=== PATIENT | male | born 1985 ===

== ENCOUNTER 2016-12-16 11:36 | Emergency (ER) | payer MEDICAID ==
[2016-12-16 11:41] VITALS: BP 130/69; PULSE 106; TEMP 96; O2SAT 100
[2016-12-16 11:42] VITALS: BMI 18.5
--- NOTE | 2016-12-16 12:19 | ED PDOC ---
Upper Extremity Pain/Injury Time Seen by Provider: 12/16/16 12:15 Chief Complaint (Nursing): Upper Extremity Problem/Injury Chief Complaint (Provider): Right arm pain History Per: Patient History/Exam Limitations: no limitations Onset/Duration Of Symptoms: Days Current Symptoms Are (Timing): Still Present Additional Complaint(s): Patient is a 31 y/o male with a past medical history of seizures presenting to the emergency department for right arm pain ongoing for several days. Swelling and redness noted on right arm. Reports that he is unsure why or how it occurred. Also notes that he was at [facility] where he received Dilantin as a result of a seizure that occurred three days ago. Denies fever or other complaints. PCP: none provided. Past Medical History Reviewed: Historical Data Vital Signs: Last Vital Signs Temp 96 F L 12/16/16 11:40 Pulse 106 H 12/16/16 11:40 Resp BP 130/69 12/16/16 11:40 Pulse Ox 100 12/16/16 11:40 - Medical History PMH: Asthma, Depression, Kidney Stones, Chronic Kidney Disease, Seizures - Family History Family History: States: Unknown Family Hx - Immunization History Hx Tetanus Toxoid Vaccination: Yes (12/07/2012) Hx Influenza Vaccination: Yes Hx Pneumococcal Vaccination: No - Home Medications Home Medications: Ambulatory Orders Medication Instructions Recorded Phenytoin, Extended [Dilantin 300 mg PO DAILY #90 cer 09/05/16 [place]] Phenytoin Sodium Extended 300 mg PO BID #60 capsule 12/11/16 [Phenytek] Cephalexin [Keflex] 500 mg PO QID #28 cap 12/16/16 Sulfamethoxazole/Trimethoprim 2 tab PO BID #28 tab 12/16/16 [Bactrim DS 800 mg-160 mg] - Allergies Allergies/Adverse Reactions: Allergies Allergy/AdvReac Type Severity Reaction Status Date / Time No Known Allergies Allergy Verified 12/11/16 07:08 Review of Systems ROS Statement: Except As Marked, All Systems Reviewed And Found Negative Constitutional: Negative for: Fever Musculoskeletal: Positive for: Other (right arm pain, swelling, and redness) Physical Exam - Reviewed Nursing Documentation Reviewed: Yes Vital Signs Reviewed: Yes - Physical Exam Appears: Positive for: Well, Non-toxic, No Acute Distress Head Exam: Positive for: ATRAUMATIC, NORMAL INSPECTION, NORMOCEPHALIC Skin: Positive for: Normal Color, Warm, Dry Eye Exam: Positive for: Normal appearance Neck: Positive for: Normal Cardiovascular/Chest: Positive for: Regular Rate, Rhythm Respiratory: Negative for: Accessory Muscle Use, Respiratory Distress Extremity: Positive for: Normal ROM, Other (4 cm indurated area with erythema noted on right forearm proximal to the antecubital region.) Neurologic/Psych: Positive for: Alert, Oriented (x3) - ECG O2 Sat by Pulse Oximetry: 100 (RA) Pulse Ox Interpretation: Normal - Progress ED Course And Treament: Duplex: neg for dvt. No svt noted Will treate for cellulitis Medical Decision Making Medical Decision Making: Time: 12:15 Initial impression: Right arm pain Initial plan: Duplex Right Upper Extremity 14:19 Ultrasound results are normal. Will give antibiotics. ~ Scribe Attestation: Documented by Adrianne Donahue, acting as a scribe for CITLALY Sheppard. Provider Scribe Attestation: All medical record entries made by the Scribe were at my direction and personally dictated by me. I have reviewed the chart and agree that the record accurately reflects my personal performance of the history, physical exam, medical decision making, and the department course for this patient. I have also personally directed, reviewed, and agree with the discharge instructions and disposition. Disposition - Clinical Impression Clinical Impression: Cellulitis - Patient ED Disposition Is Patient to be Admitted: No - Disposition Referrals: [facility] [Outside] Disposition: Routine/Home Disposition Time: 14:20 Condition: FAIR Additional Instructions: RETURN IN 2 DAYS FOR RE EVALUATION. Prescriptions: Cephalexin [Keflex] 500 mg PO QID #28 cap Sulfamethoxazole/Trimethoprim [Bactrim DS 800 mg-160 mg] 2 tab PO BID #28 tab Instructions: Cellulitis (ED) Forms: [employer] (Greek), [facility] ED School/Work Excuse
[2016-12-16 14:25] VITALS: RESP 16
--- NOTE | 2016-12-16 15:08 | US ---
PROCEDURE: Right Upper Extremity Venous Doppler HISTORY: r/o dvt/svt/abscess COMPARISON: None available. TECHNIQUE: Right upper extremity deep veins, including the lower internal jugular, subclavian, axillary and brachial veins, were evaluated flow, compressibility and respiratory phasicity. Radial and ulnar veins were also evaluated. FINDINGS: Normal flow, compressibility and respiratory phasicity was observed in the right upper extremity deep veins. Evaluation of the area of swelling and redness in medial right forearm demonstrates no mass or fluid collection. IMPRESSION: No evidence of deep venous thrombosis right upper extremity.
== END 2016-12-16 14:30 | disposition home or self-care (01) ==
LOC: H.ER 11:36
DX: L03.113 Cellulitis of right upper limb (principal); F32.9 Major depressive disorder, single episode, unspecified; J45.909 Unspecified asthma, uncomplicated; N18.9 Chronic kidney disease, unspecified

== ENCOUNTER 2017-09-22 09:56 | Emergency (ER) | payer MEDICAID, OTHER ==
[2017-09-22 09:56] VITALS: BMI 18.5
[2017-09-22 10:01] VITALS: BP 119/77; PULSE 97; RESP 19; TEMP 97.9; O2SAT 96
[2017-09-22 10:33] LABS: BASO % 0.4 % (0.0-2.0); EOS # 0.1 K/uL (0.0-0.7); EOS % 1.2 % (0.0-4.0); HEMOGLOBIN 15.4 g/dL (12.0-18.0); LYMPH # 3.6 K/uL (1.0-4.3); LYMPH % 41.7 % (20.0-40.0); MEAN CELL VOLUME 90.7 fl (80.0-94.0); MEAN CORPUSCULAR HEMOGLOBIN 29.2 pg (27.0-31.0); MEAN CORPUSCULAR HGB CONC 32.2 g/dL (33.0-37.0); MEAN PLATELET VOLUME 7.6 fl (7.2-11.7); MONO # 0.7 K/uL (0.0-0.8); MONO % 7.6 % (0.0-10.0); NEUT # 4.3 K/uL (1.8-7.0); NEUT % 49.1 % (50.0-75.0); RBC 5.27 Mil/uL (4.40-5.90); RED CELL DISTRIBUTION WIDTH 14.1 % (11.5-14.5); WHITE BLOOD COUNT 8.7 K/uL (4.8-10.8)
--- NOTE | 2017-09-22 10:40 | ED PDOC ---
HPI: Seizure Time Seen by Provider: 09/22/17 10:15 Chief Complaint (Nursing): Seizure Chief Complaint (Provider): Seizure History Per: Patient History/Exam Limitations: no limitations Recent Seizure Activity Began: Just Before Arrival Associated Symptoms: Bit Tongue Additional Complaint(s): 32 years old male with history of seizure brought to the ED after he experienced an episode of seizure in his neurologist office. Patient is compliant on 300 mg Dilantin 3 times a day. He states he only recalls walking to the doctor's office. Patient reports biting is tongue and low back pain. He denies any headaches, chest pain, shortness of breath, fever, recent illness, vomiting, nausea or incontinence. Otherwise: (-) lightheadedness, (-) trauma, (- ) tinnitus, (-) hearing loss, (-) dyspnea, (-) diarrhea, (-) syncope, (-) GI bleeding. PMD: Fara Choi Past Medical History Reviewed: Historical Data, Nursing Documentation, Vital Signs Vital Signs: Last Vital Signs Temp 97.9 F 09/22/17 10:00 Pulse 97 H 09/22/17 10:00 Resp 19 09/22/17 10:00 BP 119/77 09/22/17 10:00 Pulse Ox 96 09/22/17 13:28 - Medical History PMH: Asthma, Depression, Kidney Stones, Chronic Kidney Disease, Seizures - Surgical History Surgical History: No Surg Hx - Family History Family History: States: Unknown Family Hx - Social History Current smoker - smoking cessation education provided: Yes Alcohol: None Drugs: Denies - Immunization History Hx Tetanus Toxoid Vaccination: Yes (12/07/2012) Hx Influenza Vaccination: Yes Hx Pneumococcal Vaccination: No - Home Medications Home Medications: Ambulatory Orders Medication Instructions Recorded Cephalexin [cephalexin] 500 mg PO Q6 #28 cap 06/14/17 Phenytoin Sodium Extended 300 mg PO DAILY 06/14/17 [Phenytek] Sulfamethoxazole/Trimethoprim 1 tab PO BID #14 tab 06/14/17 [Bactrim DS 800 mg-160 mg] Cyclobenzaprine [Cyclobenzaprine 10 mg PO TID PRN #15 tab 09/22/17 HCl] Naproxen 500 mg PO BID PRN #20 tablet 09/22/17 - Allergies Allergies/Adverse Reactions: Allergies Allergy/AdvReac Type Severity Reaction Status Date / Time No Known Allergies Allergy Verified 09/22/17 10:02 Review of Systems ROS Statement: Except As Marked, All Systems Reviewed And Found Negative Constitutional: Negative for: Fever Cardiovascular: Negative for: Chest Pain Respiratory: Negative for: Shortness of Breath Gastrointestinal: Negative for: Nausea, Vomiting Neurological: Positive for: Seizures Physical Exam - Physical Exam Comments: GENERALIZED APPEARANCE:Patient is awake, alert, oriented x3 in no acute distress. SKIN: Warm, dry; (-) cyanosis. HEAD: (-) scalp swelling or tenderness. EYES: (-) conjunctival pallor. ENMT: Mucous membranes dry. NECK: (-) tenderness, (-) stiffness, (-) lymphadenopathy. CHEST AND RESPIRATORY: (-) rales, (-) rhonchi, (-) wheezes; breath sounds equal bilaterally. HEART AND CARDIOVASCULAR: (-) irregularity; (-) murmur, (-) gallop. ABDOMEN AND GI: Soft; (-) distention, (-) tenderness, (-) rebound, (-) guarding , (-) palpable masses, (-) flank tenderness. BACK: (-) tenderness. EXTREMITIES: (-) deformity; (-) edema. Distal pulses: present. NEURO AND PSYCH: Mental status as above. highway truck driver: (-) nystagmus; Pupils EOMI, (-) facial asymmetry; (-) dysarthria; tongue and uvula midline. Strength symmetric. Gait: normal. - Laboratory Results Result Diagrams: 09/22/17 10:30 09/22/17 10:30 - ECG O2 Sat by Pulse Oximetry: 96 (RA) Pulse Ox Interpretation: Normal Medical Decision Making Medical Decision Making: Time: 1030 Initial Impression: Seizure Initial Plan: --CMP --Dilantin --CBC --Lumbar Spine Complete X-Ray --Toradol IV Labs reviewed : phenytoin level is low at 6.4 XR L spine : no fracture as read by CITLALY. On reevaluation, patient is awake, alert, oriented 3 in no acute distress. Repeat no neuro exam shows no acute focal findings. X-ray and lab results discussed with the patient in great detail. Patient medicated with Cerebyx 1 g IV. Advised to follow up with your neurologist in 1-2 days without fail. Advised to take medication as prescribed. Return to the emergency room at any time for any new or worsening symptoms. Patient states he fully agrees with and understands discharge instructions. States that he agrees with the plan and disposition. Verbalized and repeated discharge instructions and plan. I have given the patient opportunity to ask any additional questions. ----- Scribe Attestation: Documented by Renee Hutchins, acting as a scribe for Heaven Pike PA-C. Provider Scribe Attestation: All medical record entries made by the Scribe were at my direction and personally dictated by me. I have reviewed the chart and agree that the record accurately reflects my personal performance of the history, physical exam, medical decision making, and the department course for this patient. I have also personally directed, reviewed, and agree with the discharge instructions and disposition. Disposition - Clinical Impression Clinical Impression: Seizure, Low back pain - Patient ED Disposition Is Patient to be Admitted: No Counseled Patient/Family Regarding: Studies Performed, Diagnosis, Need For Followup, Rx Given - Disposition Disposition: Routine/Home Disposition Time: 13:00 Condition: STABLE Additional Instructions: Thank you for letting us take care of you today. You were treated for seizure, low back pain. The emergency medical care you received today was directed at your acute symptoms. Continue taking her antiseizure medication as instructed by her neurologist. If you were prescribed any medication, please fill it and take as directed. It may take several days for your symptoms to resolve. Return to the Emergency Department if your symptoms worsen, do not improve, or if you have any other problems. Please contact your neurologist in 2 days for re-evaluation and follow up. Bring any paperwork you were given at discharge with you along with any medications you are taking to your follow up visit. Our treatment cannot replace ongoing medical care by a primary care provider (PCP) outside of the emergency department. Thank you for allowing the [facility] team to be part of your care today. Prescriptions: Cyclobenzaprine [Cyclobenzaprine HCl] 10 mg PO TID PRN #15 tab PRN Reason: Muscle Spasm Naproxen 500 mg PO BID PRN #20 tablet PRN Reason: Pain, Moderate (4-7) Instructions: Seizures, Adult (DC) Forms: [employer] (Uzbek) - PA / MOVEMAN / Resident Statement MD/DO has reviewed & agrees with the documentation as recorded.
[2017-09-22 10:51] LABS: ALB/GLOB RATIO 1.5 (1.0-2.1); ALT/SGPT 24 U/L (21-72); AST/SGOT 46 U/L (17-59); BLOOD UREA NITROGEN 17 mg/dl (9-20); CALCIUM 9.1 mg/dL (8.4-10.2); GFR AFRICAN-AMERICAN > 60; GFR NON-AFRICAN AMERICAN > 60
[2017-09-22] MEDS: Sodium Chloride 0.9% 1,000 ML IV STA (11:13)
--- NOTE | 2017-09-22 12:00 | RAD ---
Date of service: 09/22/2017 PROCEDURE: Radiographs of the Lumbar Spine. HISTORY: Pain. No history of recent/ related trauma provided Possible seizure COMPARISON: No prior. FINDINGS: BONES: Normal alignment. No listhesis. No fracture. DISC SPACES: Unremarkable. OTHER FINDINGS: None. IMPRESSION: Unremarkable radiographs of the lumbar spine.
[2017-09-22] MEDS: Fosphenytoin 1,000 MG in Sodium Chloride 0.9% 50 ML IV STA (12:54)
== END 2017-09-22 13:58 | disposition home or self-care (01) ==
LOC: H.ER 09:56
DX: G40.909 Epilepsy, unspecified, not intractable, without status epilepticus (principal); M54.5 Low back pain
CPT/HCPCS: 72100; 80053; 80185; 82948; 85025; 96374; 99285; J1885; J7030; Q2009